=== PATIENT | male | born 1990 | race Caucasian/White ===

== ENCOUNTER 2020-02-15 12:24 | Inpatient (IN) ==
[2020-02-15] MEDS ORDERED: DULCOLAX PR PRN (13:54)
[2020-02-15] MEDS ORDERED: ZOFRAN IM PRN (13:54)
[2020-02-15] MEDS ORDERED: PHENOBARBITAL IV PRN (13:54)
[2020-02-15] MEDS ORDERED: MAALOX PLUS LIQUID PO PRN (13:54)
[2020-02-15] MEDS ORDERED: SENOKOT PO PRN (13:54)
[2020-02-15] MEDS ORDERED: NICOTINE GUM BUCCAL PRN (13:54)
[2020-02-15] MEDS ORDERED: IMODIUM PO PRN ×2 (13:54)
[2020-02-15] MEDS ORDERED: NICODERM PATCH TD PRN (13:54)
[2020-02-15] MEDS ORDERED: TUBERSOL ID ONE (13:54)
[2020-02-15] MEDS ORDERED: ZOFRAN ODT PO PRN (13:54)
[2020-02-15] MEDS ORDERED: MOTRIN PO PRN (13:54)
[2020-02-15] MEDS ORDERED: ZOFRAN IV PRN (13:54)
[2020-02-15] MEDS ORDERED: TYLENOL PO PRN (13:54)
[2020-02-15] MEDS ORDERED: D5W 1,000 ML IV PRN (13:54)
[2020-02-15 14:05] LABS: URINE SOURCE CLEAN CATCH
[2020-02-15 14:07] LABS: BILIRUBIN URINE NEGATIVE (NEGATIVE); BLOOD URINE NEGATIVE (NEGATIVE); COLOR YELLOW; GLUCOSE URINE NEGATIVE (NEGATIVE); KETONE URINE NEGATIVE (NEGATIVE); LEUKOCYTES URINE NEGATIVE (NEGATIVE); NITRITE URINE NEGATIVE (NEGATIVE); PROTEIN URINE 30 mg/dL (NEGATIVE); SP GRAVITY URINE 1.021; TURBIDITY URINE HAZY (CLEAR); UR EPITHELIAL CELLS <10 /HPF (<10); URINE BACTERIA NEGATIVE /HPF; URINE RBC <10 /HPF (<10); URINE WBC <10 /HPF (<10); UROBILINOGEN URINE NORMAL (NORMAL)
[2020-02-15 14:20] LABS: UR AMPHETAMINES QUAL NONE DETECTED (NONE DETECT); UR BARBITUATES QUAL NONE DETECTED (NONE DETECT); UR BENZODIAZEPIN QUAL NONE DETECTED (NONE DETECT); UR COCAINE QUAL PRESUMPTIVE POSITIVE (NONE DETECT); UR METHADONE QUAL NONE DETECTED (NONE DETECT); UR METHAMPHETAMINE QUAL NONE DETECTED (NONE DETECT); UR OPIATES QUAL NONE DETECTED (NONE DETECT); UR OXYCODONE QUAL NONE DETECTED (NONE DETECT); UR PCP QUAL NONE DETECTED (NONE DETECT); UR PROPOXYPHENE QUAL NONE DETECTED (NONE DETECT); UR TCA QUAL NONE DETECTED (NONE DETECT)
[2020-02-15 14:21] LABS: UR CANNABINOIDS QUAL NONE DETECTED (NONE DETECT)
[2020-02-15 14:32] LABS: AGAP 14; ALBUMIN 4.5 g/dL (3.5-5.0); ALKALINE PHOSPHATASE 82 U/L (32-122); AMYLASE 59 U/L (20-200); BUN 14 mg/dL (8-22); CALCIUM 9.3 mg/dL (8.8-10.2); CHLORIDE 104 mmol/L (98-107); COSMO 286; ESTIMATED GFR > 60; GLUCOSE 109 mg/dL (70-104); GOT 15 U/L (10-34); GPT 11 U/L (10-44); LIPASE 25 U/L (13-60); POTASSIUM 4.9 mmol/L (3.5-5.1); SODIUM 143 mmol/L (136-145); TCO2 25 mmol/L (25-35); TOTAL PROTEIN 7.2 g/dL (6.3-8.3)
--- NOTE | 2020-02-15 16:22 | HISTORY AND PHYSICAL ---
CHIEF COMPLAINT: Nausea and vomiting. HISTORY OF PRESENT ILLNESS: The patient is a 29-year-old white male who presented to [facility] secondary to nausea, vomiting, abdominal pain, myalgias, paresthesias, paroxysmal sweating. Notes he has been taking Tianaas anywhere from a half to a whole bottle a day. He cannot stop due to his withdrawal symptoms. SOCIAL HISTORY: Patient is single. He works at [employer] in [place]. 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 MEDICATIONS: He is on no current prescription medications. ALLERGIES: No known drug allergies. REVIEW OF SYSTEMS: CINA score is 10 secondary to hot and cold chills, tremors, sweating, anxiety, skin paresthesias, abdominal pain, nausea, muscle aches. Denies fevers, chills, headaches, blurred vision, change in vision. Denies any focalized numbness, tingling, weakness in his extremities. Denies dysuria, frequency, urgency, polyuria, or polydipsia. Denies skin rashes, weight loss or weight gain. SUBSTANCE ABUSE HISTORY: He has not been in treatment in the past. He does have anxiety and depression. He has had financial and work problems as well as relationship problems secondary to drug use. Started drinking at 16, currently drinks 2 to 3 times a week. Started cocaine at 21, currently uses 2 times a week. Started Kratom at 26, currently taking Tianaas at 15 to 20 pills a day. Started smoking at 18, currently smokes 3 Black and Milds a day. FAMILY HISTORY: Noncontributory. SOCIAL HISTORY: Noncontributory. PHYSICAL EXAMINATION: VITAL SIGNS: Reviewed. GENERAL: Patient is awake, alert. He is in no current respiratory distress. HEENT: Normocephalic. NECK: Supple. CARDIOVASCULAR: Regular rate. CHEST: Clear. ABDOMEN: Soft. EXTREMITIES: Moves all extremities. ASSESSMENT: 1. Nausea and vomiting. 2. Abdominal pain. 3. Myalgias. Paresthesias. 4. Tremors. 5. Opiate abuse withdrawal and stabilization. PLAN: We will continue patient in the hospital. Continue to follow. Place him on Suboxone and will wean down as tolerated. We will continue counseling. cc: Ike Arnett MD
[2020-02-15] MEDS: SEROQUEL PO PRN (20:05)
[2020-02-15] MEDS: DESYREL PO PRN (23:24)
[2020-02-16] MEDS: PROTONIX PO SCH (06:04)
[2020-02-16] MEDS: VITAMIN B-1 PO SCH (10:22)
[2020-02-16] MEDS: THERA M PLUS PO SCH (10:22)
[2020-02-16] MEDS: FOLIC ACID PO SCH (10:22)
[2020-02-16] MEDS: SUBOXONE 2 MG/0.5 MG FILM SL SCH ×2 (12:13→17:38)
--- NOTE | 2020-02-16 12:45 | PROGRESS NOTE ---
DATE: 02/16/2020 SUBJECTIVE: Patient notes that he is starting to have some nausea and increased abdominal pain, started having increased sweating. OBJECTIVE: Vital Signs: On physical examination, vital signs reviewed. General: Patient is awake, alert, currently in no respiratory distress. HEENT: Normocephalic. Neck: Supple. Cardiovascular: Regular rate. Chest: Clear. Abdomen: Soft. Extremities: Moves all extremities. Neurologic: No changes. ASSESSMENT: 1. Nausea and vomiting. 2. Abdominal pain. 3. Myalgias. 4. Paresthesias. 5. Polysubstance use and abuse. PLAN: We are going to continue patient in the hospital, continue symptomatic treatment. We are going to add Suboxone at this point. Continue counseling. Further orders as needed. cc: Ike Arnett MD
[2020-02-16] MEDS: SEROQUEL PO PRN (20:24)
[2020-02-16] MEDS: DESYREL PO PRN (23:41)
[2020-02-17] MEDS: PROTONIX PO SCH ×2 (06:31→10:06)
[2020-02-17] MEDS: THERA M PLUS PO SCH (10:06)
[2020-02-17] MEDS: VITAMIN B-1 PO SCH (10:06)
[2020-02-17] MEDS: SUBOXONE 2 MG/0.5 MG FILM SL SCH ×2 (10:06→20:24)
[2020-02-17] MEDS: FOLIC ACID PO SCH (10:06)
[2020-02-17] MEDS ORDERED: SUBOXONE 2 MG/0.5 MG FILM SL ONE (11:48)
--- NOTE | 2020-02-17 18:49 | PROGRESS NOTE ---
DATE: 02/17/2020 SUBJECTIVE: Patient notes he is feeling a lot better today than he was yesterday. However, states that the Suboxone did quite hold long enough. Denies any fevers, chills, cough, congestion. Denies chest pain. PHYSICAL EXAMINATION: Vital Signs: Reviewed and stable. General: He is awake, alert. He is in no current respiratory distress. HEENT: Normocephalic. Neck: Supple. Cardiovascular: Regular rate. Chest: Clear. Abdomen: Soft. Extremities: Moves all extremities. ASSESSMENT: 1. Nausea and vomiting. 2. Abdominal pain. 3. Myalgias. 4. Paresthesias. 5. Paroxysmal sweating. 6. Opiate abuse, withdrawal, and stabilization. 7. Chronic tobacco abuse. PLAN: We are going to continue patient in the hospital. We are going to increase his Suboxone to 4/1 twice daily. Continue counseling. Hopefully home tomorrow if he improves. cc: Ike Arnett MD
[2020-02-17] MEDS: SEROQUEL PO PRN (20:58)
[2020-02-18] MEDS: DESYREL PO PRN (02:04)
[2020-02-18] MEDS: PROTONIX PO SCH ×2 (06:52→09:20)
[2020-02-18 07:51] VITALS: BP 115/69
[2020-02-18] MEDS: VITAMIN B-1 PO SCH (09:20)
[2020-02-18] MEDS: FOLIC ACID PO SCH (09:20)
[2020-02-18] MEDS: THERA M PLUS PO SCH (09:20)
[2020-02-18] MEDS: SUBOXONE 2 MG/0.5 MG FILM SL SCH (09:21)
--- NOTE | 2020-02-18 20:48 | DISCHARGE SUMMARY ---
ADMISSION DATE: 02/15/2020 DISCHARGE DATE: 02/18/2020 DISCHARGE DIAGNOSES: 1. Nausea and vomiting. 2. Abdominal pain. 3. Myalgias. 4. Paresthesias. 5. Paroxysmal sweating. 6. Polysubstance use and abuse. CONSULTATIONS: None. PROCEDURES: None. BRIEF HOSPITAL COURSE: The patient is a 29-year-old male who presented to the hospital, treated in the usual fashion and placed on Suboxone. We did try to wean this down, but his withdrawal symptoms became too severe. Therefore, he was restarted on Suboxone 4 mg twice daily. He improved, notes that he is feeling much better. DISPOSITION: Patient will be discharged home. He will follow up outpatient with treatment facility of choice. We will continue Suboxone for now. Discussed with him the need for outpatient life counseling as well as drug counseling. We will continue to try to wean Suboxone at home. cc: Ike Arnett MD
== END 2020-02-18 13:53 | disposition home or self-care (01) | DRG 897 ==
LOC: P.MEDSURG 13:29
PROVIDERS: ADMIT Family Medicine; ATTEND Family Medicine